=== PATIENT | male | born 1965 | race Caucasian/White ===

== ENCOUNTER 2016-09-04 14:48 | Emergency (ER) | payer BC, OTHER ==
[~2016-09-04] VITALS: Ht 172.7 cm; Wt 95.3 kg
[2016-09-04 15:07] VITALS: BP 129/83
[2016-09-04] MEDS ORDERED: Lidocaine 1% Plain 30 ml INJ ONE (15:15)
[2016-09-04] MEDS ORDERED: Bacitracin Oint UD TOPIC ONE (15:30)
[2016-09-04] MEDS ORDERED: BACTRIM DS TAB1 EAC1 ORAL (15:32)
[2016-09-04] MEDS ORDERED: IBUPROFEN600 MG ORAL (15:32)
[2016-09-04] MEDS ORDERED: NORCO 5-325 TA1 EAC1 ORAL (15:32)
[2016-09-04 15:37] VITALS: BP 129/83
--- NOTE | 2016-09-04 19:17 | Emergency Room Report ---
History of Present Illness General Chief Complaint: Skin Rash/Abscess Source: Patient (SATYA ROMERO) Present Illness HPI The patient is a 51-year-old male presenting for possible abscess of the scrotum. The patient states that he has had several infections in this area over the past year which have been drained and treated with antibiotics. The patient states that this feels the same. The patient states that his PMD has been working on setting up an appointment for him to see a surgeon. The pt states he noticed white/yellow DC from the area last night. Pain is described as a 9/10 dull ache and does not radiate. Pain worse with touching walking. The patient has tried tramadol at home which does help with the pain. The patient denies any other symptoms including N, V, F, chills, dysuria, hematuria , flank pain, abd pain (SATYA ROMERO) Allergies: Coded Allergies: No Known Allergies (Unverified , 09/04/16) Patient History Past Medical History: see triage record Pertinent Family History: none Reviewed Nursing Documentation: PMH: Agreed, PSxH: Agreed (SATYA ROMERO) Nursing Documentation-PMH Past Medical History: No Stated History (SATYA ROMERO) Review of Systems All Other Systems: negative except mentioned in HPI (SATYA ROMERO) Physical Exam Vital Signs Date Time Temp Pulse Resp B/P Pulse Ox O2 Delivery O2 Flow Rate FiO2 09/04/16 14:54 98.4 98 18 129/83 96 Room Air Sp02 EP Interpretation: reviewed, normal General Appearance: no apparent distress, alert, GCS 15, non-toxic Head: normocephalic, atraumatic Eyes: bilateral eye PERRL, bilateral eye normal inspection Genitourinary: no CVA tenderness, penis normal, other - Erythema, edema, and induration to mid posterior scrotum Musculoskeletal: back normal, digits/nails normal, gait/station normal, normal range of motion Neurologic: alert, oriented x3, responsive, motor strength/tone normal, sensory intact, speech normal Psychiatric: judgement/insight normal, memory normal, mood/affect normal, no suicidal/homicidal ideation Skin: other - erythema and edema to Mid posterior scrotum Lymphatic: no adenopathy (SATYA ROMERO) Procedures Incision and Drainage Incision and Drainage : Consent: Verbal Site: scrotum Blade Size: 11 I & D Procedure: betadine prep, sterile drapes applied, sterile dressing applied Wound Location: other - scrotum Wound's Depth, Shape: superficial Wound Length (cm): 5 Wound Explored: clean Irrigated w/ Saline (ccs): 100 Anesthesia: 1% Lidocaine Volume Anesthetic (ccs): 4 Splint Applied?: No Sling Applied?: No Patient Tolerated: Well Complications: None (SATYA ROMERO) Medical Decision Making PA Attestation Dr. Ashton is my supervising physician. Patient management was discussed with my supervising physician (SATYA ROMERO) Diagnostic Impression: Primary Impression: Abscess ER Course The patient is a 51-year-old male presenting for possible abscess of the scrotum. Differential diagnoses considered but not limited to: abscess, cellulitis, insect bite, orchitis Physical exam: Vitals are within normal limits. Apparent distress : penis normal. Scrotum: There is a 5 cm linear, erythematous, edematous, indurated lesion of the mid posterior scrotum. ttp. No discharge. Testicles non tender. No scrotal edema. Betadine prep was used to clean the skin and surrounding area. One percent lidocaine without epinephrine was used to anesthetize the are of planned incision. A #11 blade was used to make an incision in the Central area. Only blood was expressed. Normal saline was used to irrigate the inside of the abscess. The wound was then cleaned and sterile dressing applied. The patient is already taking Keflex. He was given a prescription for pain medications and Bactrim. The patient will follow up with PMD and surgeon as discussed. ER precautions are given (SATYA ROMERO) ER Course I evaluated this patient in the ED at [facility] with my advanced practice provider ([employer]) colleague, who practices under my general supervision. My impressions concur with the advanced practice provider in regards to their obtained history of present illness, physical exam, general management, diagnosis, and disposition. In particular, I agree with PA-obtained interpretation of imaging, rhythm strip. For the evening and overnight shifts, we do not have the benefit of an in-house Radiologist to review xrays so our interpretation may be limited. Patients are to be discharged only with normal vital signs (or if we discussed a particular exception), a plan for follow-up care, and understand to return to the ED for worsening symptoms. Please see midlevel healthcare providers note for further details. (EVELYN ASHTON M.D.) Last Vital Signs Date Time Temp Pulse Resp B/P Pulse Ox O2 Delivery O2 Flow Rate FiO2 09/04/16 15:37 98.4 18 129/83 96 Room Air 09/04/16 14:54 98 Status: improved (ANGELES ROMEROY P.A.) Disposition: HOME, SELF-CARE Condition: Improved Scripts Trimethoprim/Sulfamethoxazole 160/800* (BACTRIM DS TABLET*) 1 Each Tablet 1 TAB ORAL DAILY, #14 TAB Prov: TERZIAN,SATYA P.A. 09/04/16 Hydrocodone Bit/Acetaminophen 5-325* (NORCO 5-325 TABLET*) 1 Each Tablet 1 TAB ORAL Q6HR Y for For Pain, #10 TAB Prov: TERZIAN,SATYA P.A. 09/04/16 Ibuprofen* (MOTRIN*) 600 Mg Tablet 600 MG ORAL Q6H Y for For Pain, #30 TAB Prov: TERZIAN,SATYA P.A. 09/04/16 Referrals: [facility],REFERRING (PCP) Patient Instructions: Abscess Additional Instructions: I discussed my findings with the patient. All questions and concerns have been answered. Treatment and medication compliance have been addressed. The patient needs to followup with PMD and also continue with surgery consultation as discussed. SATYA ROMERO Sep 04, 2016 19:17 EVELYN ASHTON M.D. Sep 05, 2016 14:31
== END 2016-09-04 15:40 | disposition home or self-care (01) ==
LOC: EMR 15:05
DX: L02.818 Cutaneous abscess of other sites (principal)
CPT/HCPCS: 10060; 99284; J2001